=== PATIENT | female | born 2000 | race Two or more races ===

== ENCOUNTER 2025-09-08 19:31 | Inpatient (IN) ==
[2025-09-08 19:57] VITALS: BMI 32.8
[2025-09-08 20:23] LABS: BLOOD/HEMOGLOBIN,URINE NEGATIVE (NEGATIVE); LEUKOCYTE ESTERASE ,URINE NEGATIVE (NEGATIVE); NITRITES,URINE NEGATIVE (NEGATIVE)
[2025-09-08 20:33] LABS: APPEARANCE,URINE CLEAR (CLEAR)
[2025-09-08 20:34] LABS: SQUAMOUS EPITHELIAL CELL,UR FEW /HPF (NEGATIVE)
[2025-09-08 20:41] LABS: AMNISURE ROM TEST THERE IS A RUPTURE (NO RUPTURE)
[2025-09-08] MEDS: LR 1,000 ML IV 1,000 ML IV SCH (21:21)
[2025-09-08] MEDS: ANCEF VIAL 1 GRAM IVP ONE (21:21)
[2025-09-08] MEDS: XYLOCAINE 2 % (PLAIN) ONE (21:33)
[2025-09-08] MEDS: OFIRMEV IV 1000 MG VIAL 1,000 MG/100 ML VIAL IV ONE (21:35)
[2025-09-08] MEDS: PITOCIN ONE (21:35)
[2025-09-08] MEDS: REGLAN INJ 10 MG VIAL ONE (21:35)
[2025-09-08] MEDS: ZOFRAN INJ 4 MG VIAL ONE (21:35)
[2025-09-08] MEDS: DECADRON INJ ONE (21:35)
[2025-09-08] MEDS: EPHEDRINE SULFATE INJ ONE (21:36)
[2025-09-08 21:43] LABS: MEAN PLATELET VOLUME 10.2 fL (7.4-11.0); RED CELL DISTRIBUTION WIDTH 14.4 % (11.6-16.5)
[2025-09-08] MEDS: PEPCID 20 MG VIAL ONE (21:44)
[2025-09-08 21:54] LABS: CREATININE 0.67 mg/dL (0.55-1.02); eGFR NON BLACK RACES > 60 (>60)
[2025-09-08] MEDS: LR 1,000 ML IV 1,000 ML IV PRN (22:00)
[2025-09-08] MEDS: ZOFRAN INJ 4 MG VIAL IVP PRN (22:13)
[2025-09-08] MEDS: PEPCID 20 MG VIAL IVP PRN (22:16)
[2025-09-08] MEDS: REGLAN INJ 10 MG VIAL IVP PRN (22:18)
[2025-09-08] MEDS ORDERED: BENADRYL INJ 50 MG VIAL IVP PRN (22:20)
[2025-09-08] MEDS ORDERED: DILAUDID INJ IVP PRN (22:20)
[2025-09-08] MEDS ORDERED: ZOFRAN INJ 4 MG VIAL IVP PRN (22:20)
[2025-09-08] MEDS: ANCEF VIAL 1 GRAM IV PRN (22:22)
[2025-09-08] MEDS: NS 100 ML IV 100 ML ONE (22:22)
[2025-09-08] MEDS: EPHEDRINE SULFATE INJ IVP PRN (22:49)
[2025-09-08] MEDS: DECADRON INJ IVP PRN (22:50)
[2025-09-08] MEDS: ROBINUL ONE (22:52)
[2025-09-08] MEDS: ROBINUL IVP PRN (22:53)
[2025-09-08] MEDS: OFIRMEV IV 1000 MG VIAL 1,000 MG/100 ML VIAL IV PRN (22:54)
[2025-09-08] MEDS: TORADOL 30 MG VIAL ONE (23:04)
[2025-09-08] MEDS: NS 1,000 ML IV 400 ML IV PRN (23:29)
[2025-09-08] MEDS ORDERED: PITOCIN IVP PRN (23:29)
[2025-09-08] MEDS: TORADOL 30 MG VIAL IVP PRN (23:53)
[2025-09-09] MEDS ORDERED: ZOFRAN INJ 4 MG VIAL IVP PRN (00:26)
[2025-09-09] MEDS ORDERED: REGLAN INJ 10 MG VIAL IVP PRN (00:26)
[2025-09-09] MEDS ORDERED: PERCOCET TAB 5/325 MG PO PRN (00:26)
[2025-09-09] MEDS ORDERED: BENADRYL INJ 50 MG VIAL IVP PRN (00:26)
[2025-09-09] MEDS ORDERED: MYLICON TAB 80 MG CHEW PO PRN (00:26)
[2025-09-09] MEDS: TORADOL 30 MG VIAL IVP PRN (03:54)
[2025-09-09] MEDS: OXYTOCIN 20 UNIT/1,000 ML-NS 20 UNIT/1,000 ML PLAST..BAG IV SCH (06:10)
[2025-09-09] MEDS ORDERED: MOTRIN TAB 800 MG PO PRN (07:50)
[2025-09-09] MEDS: TORADOL 30 MG VIAL IVP ONE (08:40)
[2025-09-09] MEDS: TORADOL 30 MG VIAL ONE (08:42)
[2025-09-09] MEDS ORDERED: COLACE CAP 100 MG PO SCH (09:00)
[2025-09-09] MEDS: COLACE CAP 100 MG PO SCH (09:06)
[2025-09-09] MEDS: PRENATAL PLUS PO SCH (09:06)
[2025-09-09] MEDS: MOTRIN TAB 800 MG PO PRN (09:06)
[2025-09-09] MEDS: PERCOCET TAB 5/325 MG PO PRN (12:01)
[2025-09-09] MEDS: BACTROBAN TOPICAL OINT TOP SCH (12:03)
[2025-09-09] MEDS ORDERED: MOTRIN TAB 800 MG PO ONE (20:02)
[2025-09-10 02:09] VITALS: RESP 18
[2025-09-10] MEDS ORDERED: ADACEL or BOOSTRIX TDaP VACCINE IM ONE (08:24)
[2025-09-10] MEDS: ADACEL or BOOSTRIX TDaP VACCINE IM ONE (08:26)
[2025-09-10 12:01] VITALS: BP 113/64; PULSE 73; TEMP 97.8; O2SAT 97
== END 2025-09-10 11:55 | disposition home or self-care (01) | DRG 788 ==
LOC: ER 19:31 → LD 21:05 → MED/SURG 09-09 00:24
PROVIDERS: ADMIT Specialist; ATTEND Specialist
DX: O34.211 Maternal care for low transverse scar from previous cesarean delivery; N85.8 Other specified noninflammatory disorders of uterus; Z3A.39 39 weeks gestation of pregnancy; Z37.0 Single live birth; Z55.8 Other problems related to education and literacy